=== PATIENT | female | born 1975 | race Caucasian/White ===

== ENCOUNTER 2020-08-29 16:34 | Emergency (ER) | payer SELFPAY ==
[~2020-08-29] VITALS: Ht 167.6 cm; Wt 113.9 kg
[2020-08-29 16:41] VITALS: BP 174/85
--- NOTE | 2020-08-29 17:28 | NUR ---
LACERATION ABOVE LEFT EYE AND EYEBROW. TRIPPED OVER CASE OF WATER BOTTLES IN MIDDLE OF NIGHT AND HIT HEAD ON TABLE
== END 2020-08-29 18:35 | disposition home or self-care (01) ==
LOC: ED 18:19
DX: S09.93XD Unspecified injury of face, subsequent encounter (principal); R51.9 Headache, unspecified; Z48.01 Encounter for change or removal of surgical wound dressing; Z90.710 Acquired absence of both cervix and uterus; X58.XXXD Exposure to other specified factors, subsequent encounter
CPT/HCPCS: 99283